=== PATIENT | female | born 1995 | race Caucasian/White ===

== ENCOUNTER 2016-02-19 19:45 | Inpatient (IN) | payer BC ==
[~2016-02-19] VITALS: Ht 160 cm; Wt 66.8 kg
[2016-02-19] VITALS (10 sets, daily range): BP systolic 100–123; BP diastolic 50–73; PULSE 73–97; TEMP 97.8–98.3
[~2016-02-19 19:45] MED LIST: AMOXICILLIN 8751 TAB PO; NATURAL IRON65 MG; PRENATAL PO
[2016-02-19 21:39] LABS: BASO # 0.1 (0.0-0.2); BASO % 0.4 % (0.0-2.0); EOS # 0.3 (0.0-0.7); EOS % 1.8 % (0-4.0); GRAN # 10.4 (1.4-6.5); GRAN % 73.3 % (42.2-75.2); LYMPH # 2.7 (1.2-3.4); LYMPH % 19.3 % (20.0-51.0); MEAN CELL VOLUME 85 fl (80.0-100.0); MEAN CORPUSCULAR HGB CONC 32 g/dl (33.0-37.0); MEAN PLATELET VOLUME 10.9 fl (7.4-10.4); MONO # 0.6 (0.1-0.6); MONO % 4.4 % (1.7-9.3); PLATELET COUNT 267 K/mm3 (130-400); RED BLOOD COUNT 3.76 M/mm3 (4.10-5.30); REDCELL DISTRIBUTION WIDTH-CV 13.8 % (11.5-14.5); WHITE BLOOD COUNT 14.2 K/mm3 (4.8-10.8)
[2016-02-19 21:42] LABS: HEMATOCRIT 31.9 % (37.0-47.0); HEMOGLOBIN 10.3 g/dl (12.5-16.0); MEAN CORPUSCULAR HEMOGLOBIN 27 pg (27.0-31.0)
[2016-02-20] VITALS (43 sets, daily range): BP systolic 93–123; BP diastolic 50–74; PULSE 59–114; TEMP 97.4–98.6
[2016-02-20] MEDS ORDERED: MOTRIN 800800 MG/TAB PO (06:00)
[2016-02-20] MEDS ORDERED: PERCOCET 325 MG1 TA2 PO (06:00)
[2016-02-21 08:23] VITALS: BP 107/73; PULSE 70; TEMP 97.5
[2016-02-21 16:15] VITALS: BP 113/60; PULSE 85; TEMP 97.4
[2016-02-21 21:00] VITALS: BP 105/63; PULSE 87; TEMP 98.3
[2016-02-22 08:11] VITALS: BP 119/63; PULSE 83; TEMP 97.6
== END 2016-02-22 18:25 | disposition home or self-care (01) | DRG 774 ==
LOC: LDRO 19:45 → LDR 20:42 → OB 20:42
PROVIDERS: Obstetrics & Gynecology
PROC: 10E0XZZ Delivery of Products of Conception, External Approach (ICD-10-PCS; principal; 2016-02-20)
PROC: 0UQM0ZZ Repair Vulva, Open Approach (ICD-10-PCS; 2016-02-20)
DX: O42.02 Full-term premature rupture of membranes, onset of labor within 24 hours of rupture (principal); O98.312 Other infections with a predominantly sexual mode of transmission complicating pregnancy, second trimester; A56.02 Chlamydial vulvovaginitis; O99.334 Smoking (tobacco) complicating childbirth; F17.210 Nicotine dependence, cigarettes, uncomplicated; O70.0 First degree perineal laceration during delivery; O99.02 Anemia complicating childbirth; D64.9 Anemia, unspecified; Z3A.37 37 weeks gestation of pregnancy; Z37.0 Single live birth
CPT/HCPCS: J2590; J2795; J7120

== ENCOUNTER 2017-02-04 20:17 | Outpatient (CLI) | payer SELFPAY ==
[~2017-02-04] VITALS: Ht 160 cm; Wt 68.2 kg
[~2017-02-04 20:17] MED LIST changes: +MOTRIN 800800 MG/TAB PO; +PERCOCET 325 MG1 TA2 PO
[2017-02-04 21:18] VITALS: BP 110/62; PULSE 95; TEMP 98.1
[2017-02-04 21:37] VITALS: BP 110/69; PULSE 90
== END 2017-02-04 21:50 | disposition short-term general hospital (02) ==
LOC: LDRO 20:17
DX: O42.913 Preterm premature rupture of membranes, unspecified as to length of time between rupture and onset of labor, third trimester (principal); Z3A.33 33 weeks gestation of pregnancy
CPT/HCPCS: J0290; J0702; J7120

== ENCOUNTER 2018-08-15 23:05 | Outpatient (CLI) | payer MEDICAID ==
[~2018-08-15] VITALS: Ht 160 cm; Wt 52.3 kg
--- NOTE | 2018-08-15 23:10 | NUR ---
G3L2 at 34 weeks and 6 days arrives to unit with complaint of loss of fluid around 2230. Pt reports she felt a gush of clear fluid and has been leaking since. Pt reports delivering her other 2 children "2 months early" vaginally and both requiring NICU stays. Pt oriented to room, call light within reach, bed in low and locked position. EFM and toco explained and applied. Amnitrace done to patients underwear, small amount of blue noted on amnitrace. Amnitrace also swabbed in patients vagina and perineum, no blue on amnitrace. SVE 2-3/50/-3, very posterior, no fluid returned on glove, and membranes felt. Verbal orders from Dr. Santana to obtain amnisure. Amnisure obtained and sent to lab.
[2018-08-16] VITALS: BP 125/64; PULSE 95
--- NOTE | 2018-08-16 00:15 | NUR ---
0000- Amniotrace negative for SROM. updated. Ok to discharge home. Patient to follow up with [facility] in [place] on 08/16/18. EFM and TOCO off. 0015- Discharge instructions explained to patient and friend in depth. Patient encouraged to follow up in [place] 08/16/18. Instructions given on early labor and discomforts of labor. Patient and friend ambulatory off unit.
== END 2018-08-16 00:15 | disposition home or self-care (01) ==
LOC: LDRO 23:05 → LDR 23:10 → LDRO 08-16 00:15 → LDR 08-16 00:15
DX: O42.913 Preterm premature rupture of membranes, unspecified as to length of time between rupture and onset of labor, third trimester (principal); Z3A.34 34 weeks gestation of pregnancy
CPT/HCPCS: OP

== ENCOUNTER 2018-08-23 18:59 | Outpatient (CLI) | payer MEDICAID ==
[~2018-08-23] VITALS: Ht 160 cm; Wt 68.2 kg
[2018-08-23 19:20] VITALS: BP 104/64; PULSE 78; TEMP 98.2
--- NOTE | 2018-08-23 19:30 | NUR ---
1930 G3 L2 36 WEEK WITH HX DELIVERIES AND HX OF CARE WITH SENIOR DIRECTOR FINANCE AT [facility] TO LR4 WITH C/O CONTRACTIONS FOR LAST THREE HOURS. STATES TRIED TO CONTACT HER SENIOR DIRECTOR FINANCE BUT WAS UNABLE TO DO SO, SO CAME HERE TO BE SEEN. EFM ON. SVE DONE. ASSESSMENT COMPLETED. STATES HAS BEEN HAVING CONTACTIONS EVERY THREE MINUTES. NO CONTRACTIONS NOTED FOR FIRST 18 MINUTES OF ADM.
[2018-08-23 19:47] VITALS: BP 104/64; PULSE 78; TEMP 98.2
--- NOTE | 2018-08-23 20:15 | NUR ---
2015 SVE WITH NO CHANGE. CONTRACTIONS MILD AND VERY IRREGULAR. DISMISS INSTRUCTIONS GIVEN. STATES HER CHICKEN STUFFER WANTS HER TO DELIVER IN [place]. INSTRUCTED CHICKEN STUFFER SHOULD CONTACT HEALTH SYSTEM BEFORE DELIVERY WITH THIS INFORMATION OR DELIVER IN PLANNED. 2030 HOME WITH INSTRUCTIONS.
== END 2018-08-23 20:30 | disposition home or self-care (01) ==
LOC: LDRO 18:59 → LDR 19:00 → LDRO 20:30
DX: O62.9 Abnormality of forces of labor, unspecified (principal); Z3A.36 36 weeks gestation of pregnancy
CPT/HCPCS: OP

== ENCOUNTER 2018-09-15 09:35 | Inpatient (IN) | payer OTHER ==
[~2018-09-15] VITALS: Ht 160 cm; Wt 68.2 kg
[2018-09-15] VITALS (27 sets, daily range): BP systolic 94–125; BP diastolic 51–80; PULSE 60–95; TEMP 98–98.3
--- NOTE | 2018-09-15 09:35 | NUR ---
0935- Pt arrives on unit via wheelchair with complaints of UCs since 0600. Pt states she has received care in [place] with Dr Avila. Denies complications with . States her other two deliveries were . Denies LOF or VB. +FM. Pt assisted into bed and changed into gown. 0940- EFM and TOCO applied and tracing. SVE by Sultana RN /-2, BBow noted. Pt requesting epidural. IV started, Discussed consent forms. Pt verbalizes understanding.
--- NOTE | 2018-09-15 10:15 | NUR ---
1000- Pt assisted to sitting on side of bed for epidural placement. OLVIN Kirk at bedside. FHR tracing intermittently tracing maternal HR due to maternal position. 1008- Single shot, see anesthesia record. 1015- Pt assisted to semi-fowlers with WL. EFM and TOCO adjusted.
[2018-09-15 10:18] LABS: BASO % 0.2 % (0.0-2.0); EOS # 0.1 (0.0-0.7); EOS % 0.6 % (0-4.0); GRAN # 9.3 (1.4-6.5); GRAN % 74.7 % (42.2-75.2); HEMOGLOBIN 10.4 g/dl (12.5-16.0); LYMPH # 2.5 (1.2-3.4); LYMPH % 20.4 % (20.0-51.0); MEAN CELL VOLUME 79 fl (80.0-100.0); MEAN CORPUSCULAR HEMOGLOBIN 25 pg (27.0-31.0); MEAN CORPUSCULAR HGB CONC 31 g/dl (33.0-37.0); MEAN PLATELET VOLUME 11.6 fl (7.4-10.4); MONO # 0.5 (0.1-0.6); MONO % 3.7 % (1.7-9.3); PLATELET COUNT 278 K/mm3 (130-400); RED BLOOD COUNT 4.23 M/mm3 (4.10-5.30); REDCELL DISTRIBUTION WIDTH-CV 14.5 % (11.5-14.5)
[2018-09-15 10:25] LABS: HEMATOCRIT 33.2 % (37.0-47.0)
[2018-09-15 12:02] LABS: TRICYCLIC ANTIDEPRESS URINE NEGATIVE
--- NOTE | 2018-09-15 13:10 | NUR ---
1250: to bedside. AROM at 1250, large amount of clear fluid. 1255: Initial push. 1300: Spontaneous vaginal delivery of viable female infant assisted by over 1st degree perineal laceration. Care of assumed by Patricia MATTHEWS at this time. 1304: Spontaneous vaginal delivery of placenta assisted by . Pitocin infusing at 333ml/hr. Fundus firm, lochia WNL. 1st degree laceration repaired using 2-[address]-1 by . 1310: Fundus firm, lochia WNL. Recovery period started.
--- NOTE | 2018-09-15 15:10 | NUR ---
Patient up to bathroom with RN standby assist. Patient unable to void at this time. Fundus firm, lochia WNL. Pericare performed. Patient to Room 214 via wheelchair. Oriented to room and plan of care. Call light within reach.
[2018-09-15 15:21] LABS: HIV 1/2 Antibodies Non-Reactive; HIV-1p24 Antigen Non-Reactive
[2018-09-16] VITALS: BP 92/42; PULSE 66; TEMP 98.1
[2018-09-16 04:00] VITALS: BP 96/58; PULSE 70; TEMP 98.1
[2018-09-16 08:20] VITALS: BP 101/54; PULSE 69; TEMP 98.7
[2018-09-16 11:30] VITALS: BP 95/48; PULSE 87; TEMP 97.7
[2018-09-16 14:31] LABS: HEPATITIS B SURFACE ANTIGEN Negative (Negative)
[2018-09-16 16:05] VITALS: BP 105/74; PULSE 108; TEMP 98.3
[2018-09-16 22:45] VITALS: BP 100/53; PULSE 95
[2018-09-17 07:50] VITALS: BP 98/52; PULSE 70; TEMP 98.2
[2018-09-17] MEDS ORDERED: IBU600 MG PO (11:02)
--- NOTE | 2018-09-17 13:06 | NUR ---
JANEY met with the patient's mother and her partner for a social work specialist consult due to past drug use. Patient went to rehab when she was 16. Patient has a car seat, family support and plans to apply for food benefits and WIC. SW provided a resource packet to the patient. There are no additional needs at this time. (Baby cord blood pending)
[2018-09-18 02:14] LABS: RPR (VDRL) XXX
== END 2018-09-17 14:10 | disposition home or self-care (01) | DRG 807 ==
LOC: LDRO 09:35 → LDR 09:36 → OB 15:15
PROVIDERS: ADMIT Obstetrics & Gynecology
PROC: 10E0XZZ Delivery of Products of Conception, External Approach (ICD-10-PCS; principal; 2018-09-15)
PROC: 0HQ9XZZ Repair Perineum Skin, External Approach (ICD-10-PCS; 2018-09-15)
PROC: 10907ZC Drainage of Amniotic Fluid, Therapeutic from Products of Conception, Via Natural or Artificial Opening (ICD-10-PCS; 2018-09-15)
DX: O99.02 Anemia complicating childbirth (principal); Z37.0 Single live birth; Z3A.39 39 weeks gestation of pregnancy; D64.9 Anemia, unspecified; Z72.0 Tobacco use; O70.0 First degree perineal laceration during delivery
CPT/HCPCS: J2540; J2590; J2795; J7120